=== PATIENT | male | born 1935 | race Caucasian/White ===

== ENCOUNTER 2016-09-17 17:46 | Inpatient (IN) | payer BC ==
--- NOTE | ~2016-09-17 | DS ---
Discharge Summary [facility] [address] [place]. [address] NAME: KHANG COPELAND : 34 STATUS : ADM IN [facility]#: [id number] AGE: 81 ADM/REG DATE : 09/17/16 MR#: [id number] REPORT SERV DATE: 09/23/16 DICTATED BY: DATE: REPORT STATUS : Draft TRANSCRIBED BY: MODL DATE: 09/22/16 ADMISSION DATE: 09/17/2016 DISCHARGE DATE: 09/22/2016 [facility] DISCHARGE DIAGNOSES: 1. Systemic inflammatory response syndrome due to bilateral interstitial pneumonia. 2. Asplenic. 3. Parkinson disease with dementia, and recently progressive weakness. 4. Acute kidney injury due to dehydration. 5. 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 6. Insulin-dependent diabetes mellitus type 2-with hypoglycemia at admission. Basal insulin decreased this admission. 7. Hypertension. 8. History of seizure disorder. 9. Hyperlipidemia. 10.Gastroesophageal reflux disease. 11.Benign prostatic hypertrophy. 12.Coronary artery disease, with remote history of myocardial infarction. 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 IMAGIN. Portable chest x-ray September 17 shows no acute process. 2. PA lateral chest x-ray September 19 shows interstitial pneumonia bilaterally. 3. Swallow study September 19 no aspiration or penetration. Pooling to the vallecula and piriform sinuses. Prolonged chewing. PERTINENT LABS: Creatinine at admission 1.2, 0.9 at discharge. Hemoglobin values ranging from 8.9 to 9.8, initial white blood cell count 19.6, 9.2 at discharge. Electrolytes normal. Initial blood gas pH 7.4, pCO2 30, PO2 75, with oxygen saturations 94% on room air. Urinalysis negative for infection, lactic acid level and procalcitonin negative. Strep and Legionella antigen are negative. Troponin negative. Iron 32, iron binding capacity 207. Blood cultures x2 negative. Guaiacs and serum protein electrophoresis pending at the time of discharge. Sputum culture pending with less than 25 white blood cells on smear. BRIEF HISTORY: For full details, please see the previously dictated history of present illness by Dr. Toribio. This is an 81-year-old, white male with history of recently progressive Parkinson's, managed by Dr. Hall, who presented to the Emergency Department with chief complaints of weakness and cough, poor p.o. intake. Labs were consistent with systemic inflammatory response syndrome felt probably due to pneumonia. He also demonstrated evidence of acute kidney injury at admission, and was admitted to the Hospitalist Service for management. HOSPITAL COURSE: The patient was started on IV fluids. There was no evidence of a clear infiltrate on chest x-ray, but he was treated for aspiration versus community-acquired Discharge Summary [address] [address] NAME: KHANG COPELAND : 34 STATUS : ADM IN PAT#: [id number] AGE: 81 ADM/REG DATE : 09/17/16 MR#: [id number] REPORT SERV DATE: 09/23/16 DICTATED BY: DATE: REPORT STATUS : Draft TRANSCRIBED BY: MODL DATE: 09/22/16 pneumonia. Repeat imaging following hydration was obtained and demonstrated bilateral interstitial pneumonitis versus pneumonia. He was initially started on cefepime, vanc and Flagyl. This was changed to Rocephin and azithromycin with ongoing stability in white blood cell count, and no need for supplemental oxygen. No evidence of abnormal pulmonary examination during the hospitalization. Despite treatment of the dehydration and pneumonia, the patient remained very weak. It is unclear whether this is due to the acute illness or whether it is related to his underlying Parkinson disease. He does have significant dementia as well as cogwheeling. He does not have any evidence of current aspiration by Speech Therapy and swallow evaluation, however, is recommended to adhere to a mechanical soft chopped meat with gravy, nectar thick liquid diet with aspiration precautions given the risk of possible aspiration. The patient's other medical conditions were stable this admission. He did demonstrate some hypoglycemia on his home doses of insulin necessitating a decrease in his basal insulin. He also demonstrated some anemia which is long standing with hemoglobin values between 8.5 and 9.5. Iron studies obtained this admission were consistent with a mixed iron deficiency and anemia of chronic disease. We attempted to obtain guaiacs and patient had 2 bowel movements while here, but results are not yet in the computer. We also obtain serum protein electrophoresis, and results are not yet in the computer. This will need to be followed up outpatient. DISPOSITION: The patient will be transferred to [facility] for ongoing physical rehabilitation. I have recommended to his that he follow up with both PCP and neurologist post discharge to see about any further adjustments in Parkinson's medications. Discharge disposition to [facility] for rehab with no specific activity restrictions. He should continue his current diet at discharge which again is mechanical soft with chopped meats and gravy, nectar thick liquids with aspiration precautions. His will contact Dr. Hall and their primary care provider within 1 to 2 weeks from rehab discharge, for followup appointments. DISCHARGE MEDICATIONS: 1. Aspirin 81 mg p.o. daily. 2. Azithromycin 500 mg p.o. daily through 09/25/2016. 3. Sinemet 25/100, 1.5 tabs every 8 hours. 4. Colace 100 mg p.o. twice a day. 5. Aricept 5 mg p.o. at q.h.s. 6. Iron sulfate 300 mg p.o. daily. 7. Lopid 600 mg p.o. twice a day. 8. Sliding scale NovoLog q.a.c. and q.h.s. 9. Losartan 50 mg p.o. daily. 10.Melatonin 9 mg p.o. at q.h.s. 11.Protonix 40 mg p.o. q.a.m. 12.Dilantin 500 mg p.o. every Thursday, Thursday, Thursday at bedtime and 400 mg p.o. every Thursday, Thursday, , and Thursday at bedtime. 13.MiraLAX one packet p.o. daily. Discharge Summary [address] [address] NAME: KHANG COPELAND : 34 STATUS : ADM IN [facility]#: [id number] AGE: 81 ADM/REG DATE : 09/17/16 MR#: [id number] REPORT SERV DATE: 09/23/16 DICTATED BY: DATE: REPORT STATUS : Draft TRANSCRIBED BY: ALMAS DATE: 09/22/16 14.Pravastatin 20 mg p.o. q.h.s. 15.Zoloft 100 mg p.o. daily. 16.Levemir 10 units subcu at q.h.s. 17.Tylenol 650 mg p.o. every four hours as needed for pain. 18.Antivert 12.5 mg p.o. every six hours as needed for dizziness. 19.Cefdinir 300 mg p.o. q.12 hours for four4 days through 09/25/2016 doses. Thirty five minutes was spent in completion of the discharge summary. DICTATED BY: Elias Guillaume/ALMAS Adi Westfall M.D. / [id number] CC: Elias Guillaume M.D. Sharon Farber, M.D. Muhammad Munir, M.D.
--- NOTE | ~2016-09-17 | HP ---
History And Physical [place] [id number] [facility] [place]. [address] NAME: KHANG COPELAND : 34 STATUS : ADM IN [facility]#: [id number] AGE: 80 ADM/REG DATE : 09/17/16 MR#: [id number] REPORT SERV DATE: 09/18/16 DICTATED BY: CARLEY PERDOMO DATE: 09/17/16 REPORT STATUS : Draft TRANSCRIBED BY: MODRadha DATE: 09/17/16 DATE OF ADMISSION: 09/17/2016 POINT OF ENTRY: [facility]. CHIEF COMPLAINT: Weakness. HISTORY OF PRESENT ILLNESS: Mr. Copeland is an 80-year-old gentleman with a history of Parkinson's disease, hypertension, insulin-dependent diabetes mellitus type 2 as well as a remote history of dysphagia, who is also status post splenectomy, who presents with a history of two days of generalized weakness. The patient states for the past two days he has had progressive worsening weakness, it is generalized. He denies any focal weakness. At baseline the patient utilizes a walker given his history of Parkinson disease. , who is at bedside, states that for the past two days while complaining of weakness he is still unable to ambulate using his walker up until prior to presentation to the emergency department where he was so weak, even with assistance of a walker he was struggling to walk and was at risk of falling backwards. They both deny any fevers, night sweats, chills, chest pain, palpitations, abdominal pain, shortness of breath, nausea, vomiting, diarrhea, constipation, dysuria, lower extremity edema, melena, or hematochezia. states he has always had some amount of nonproductive cough secondary to sinus disease; however, she feels over the past few days it has become a little more pronounced and wetter in nature. Initial evaluation in the emergency department for vital signs that were stable. Labs notable for a BUN and creatinine that are slightly [place] [id number]. Search for source of an infection revealed urinalysis that was negative. Lactic acid is normal and procalcitonin was negative. Chest x-ray concerning for possible right lower lobe infiltrate versus atelectasis. The patient was subsequently admitted to the Hospitalist Service for further evaluation and management. REVIEW OF SYSTEMS: Comprehensive review of systems otherwise negative unless listed in the history of present illness. PREVIOUS MEDICAL HISTORY: 1. Parkinson's disease. 2. Seizure disorder. 3. BPH. 4. Gastroesophageal reflux disease with history of Cha's esophagus status post ablation. 5. Depression. 6. Remote history of coronary artery disease with prior NE. 7. Insulin-dependent diabetes mellitus, type 2. 8. COPD, not on home oxygen. History And Physical [address] [address] NAME: KHANG COPELAND : 34 STATUS : ADM IN [facility]#: [id number] AGE: 80 ADM/REG DATE : 09/17/16 MR#: [id number] REPORT SERV DATE: 09/18/16 DICTATED BY: CARLEY PERDOMO DATE: 09/17/16 REPORT STATUS : Draft TRANSCRIBED BY: ALMAS DATE: 09/17/16 9. Hypertension. 10.Hyperlipidemia. 11.Status post splenectomy. SURGICAL HISTORY: Splenectomy. ALLERGIES: TO IODINE IV CONTRAST. HOME MEDICATIONS: 1. Aspirin 81 mg daily. 2. Sinemet 25-100 mg 1-1/2 tablets t.i.d. 3. Aricept 5 mg q.h.s. 4. Lopid 600 mg b.i.d. 5. Levemir 39 units daily. 6. Humalog sliding scale. 7. Losartan 50 mg daily. 8. Meclizine 12.5 mg q.6 hours p.r.n. 9. Melatonin 10 mg q.h.s. 10.Omeprazole 40 mg daily. 11.Phenytoin 500 mg Thursday, Thursday, Thursday q.h.s. 12.Phenytoin 400 mg Thursday, , Thursday, Thursday q.h.s. 13.Pravachol 20 mg q.h.s. 14.Sertraline 100 mg daily. SOCIAL HISTORY: Denies any tobacco, alcohol, or illicits. FAMILY MEDICAL HISTORY: Mother with hypertension and breast cancer. Father's history is unknown. He is an only child. LABS AND IMAGIN. White count is 19.6, hemoglobin is 9.8, hematocrit is 29.8, platelet count is 223, and INR 1.3. 2. Sodium is 143, potassium 4.0, chloride 111, carbon dioxide 23, BUN 26, creatinine 1.16, glucose is 70, calcium is 8.9, magnesium is 2.3, protein is 7.7, albumin is 3.2, bilirubin is 0.4, ALT is 9, AST 12, alkaline phosphatase is 167. 3. Troponin less than 0.02. 4. Lactic acid 0.8. Procalcitonin is negative. 5. Urinalysis: Spec gravity 1.015, no evidence of any infection. 6. ABG; pH is 7.40, pCO2 is 30, PO2 is 75, bicarb is 18, and saturating 94% on room air. 7. Chest x-ray per my review shows right lower lobe infiltrate versus possible atelectasis. 8. EKG per my review shows normal sinus rhythm. No evidence of any acute ischemia or infarction. PHYSICAL EXAMINATION: VITAL SIGNS: Temperature is 99.6 degrees Fahrenheit, pulse is 88, respirations 24, saturating 98% on room air, and blood pressure 160/67. History And Physical [address] [address] NAME: KHANG COPELAND : 34 STATUS : ADM IN [facility]#: [id number] AGE: 80 ADM/REG DATE : 09/17/16 MR#: [id number] REPORT SERV DATE: 09/18/16 DICTATED BY: CARLEY PERDOMO DATE: 09/17/16 REPORT STATUS : Draft TRANSCRIBED BY: ALMAS DATE: 09/17/16 GENERAL: The patient is awake and alert, in no acute distress. Resting comfortably. He is a well-developed, well-nourished, elderly male. is at bedside. HEENT: Atraumatic and normocephalic. Moist mucous membranes. Pupils equal, round, reactive to light and accommodation. Extraocular eye movements intact. No scleral icterus. NECK: No jugular venous distention or carotid bruits. CARDIAC: Regular rate and rhythm. No murmurs, rubs, or gallops. Normal S1, S2. LUNGS: Does have inspiratory rales and possible rhonchi in the right lower lung base, otherwise in no respiratory distress. ABDOMEN: Soft, nontender, and nondistended. Good bowel sounds. No rebound, guarding, or rigidity. EXTREMITIES: Warm and perfused. No cyanosis, clubbing, or edema. SKIN: Warm and dry. PSYCH: Affect appropriate. NEURO: Alert and oriented x3. Cranial nerves 2 through 12 grossly intact. Speech is normal. Gait not assessed. ASSESSMENT AND PLAN: Mr. Copeland is an 80-year-old gentleman who presents with a two-day history of weakness as well as worsening cough and found to have evidence of right lower lobe pneumonia. PROBLEM LIST: 1. Right lower lobe pneumonia. 2. Weakness. 3. Leukocytosis. 4. Dehydration. 5. Asplenia status. 6. Insulin-dependent diabetes mellitus type 2. PLAN: 1. Right lower lobe pneumonia. We will place the patient on initially broad-spectrum antibiotics of cefepime, vancomycin, and Flagyl. Given his asplenia as well as concern for possible aspiration and dysphagia risk. Follow up blood cultures. Try to obtain sputum culture as well as urinary antigens. We will attempt to narrow antibiotics as tolerated. 2. Dehydration. Provide IV fluid hydration. 3. Leukocytosis likely secondary to right lower lobe pneumonia. Urinalysis is clear. Follow up blood cultures. 4. Weakness likely secondary to right lower lobe pneumonia as well as dehydration. Provide IV fluid hydration. Treat his underlying pneumonia. Physical Therapy consultation. 5. Asplenia. Given the patient's asplenia and concern for underlying infection, we will initially treat with broad-spectrum antibiotics while cultures result as well as we observe him clinically. 6. Concern for aspiration versus dysphagia. reports that while the patient was at [facility] a few years ago there was concern for some aspiration dysphagia and was placed on thickened liquids which he is no longer taking. We will place the patient on aspiration precautions as well as Speech Therapy evaluation and will cover with IV History And Physical [address] [address] NAME: KHANG COPELAND : 34 STATUS : ADM IN [facility]#: [id number] AGE: 80 ADM/REG DATE : 09/17/16 MR#: [id number] REPORT SERV DATE: 09/18/16 DICTATED BY: CARLEY PERDOMO DATE: 09/17/16 REPORT STATUS : Draft TRANSCRIBED BY: MODRadha DATE: 09/17/16 Flagyl. 7. Insulin-dependent diabetes mellitus type 2. Place him on level IV insulin sliding scale. We are going to have the patient's long-acting insulin as his blood sugar here was 70. 8. DVT prophylaxis. Lovenox subcu. CODE STATUS: The patient wished to be DNR/DNI, this was confirmed. DEJA/ALMAS Carley Perdomo MD / [id number] CC: MD Golden Beal M.D.
--- NOTE | ~2016-09-17 | DS ---
Discharge Summary [place] [id number] [facility] [place]. [address] NAME: KHANG COPELAND : 34 STATUS : DIS IN PAT#: [id number] AGE: 81 ADM/REG DATE : 09/17/16 MR#: [id number] REPORT SERV DATE: 09/25/16 DICTATED BY: FELIZ MESSER DATE: 09/24/16 REPORT STATUS : Draft TRANSCRIBED BY: MODL DATE: 09/24/16 ADMISSION DATE: 09/17/2016 DISCHARGE DATE: 09/23/2016 Date of transfer to SNF/rehab is 09/23/2016. CONDITION ON TRANSFER: Stable. DISPOSITION: Transfer to SNF/rehab. For detailed discharge summary, please refer to discharge summary dictated by Dr. Adi Westfall on 09/22/2016. His discharge was held until 09/23/2016 only because of insurance approval and unavailability of bed. Otherwise, he was stable. His discharge diagnosis remain exactly the same as dictated in the discharge summary on 09/22/2016. The only new labs that I had on this patient from 09/23/2016 are as follows: His glucose levels came back fairly normal fluctuating between 74 and 170 on 09/23/2016. Other than that, I have no other labs that have been updated. 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 The patient does not have any myeloma at this time. Blood cultures have come back with no growth in four days. Medications that he will be discharged on include the followin. Aspirin 81 mg once a day. 2. Losartan 50 mg once a day. 3. Zoloft 100 mg once a day. 4. Lopid 600 mg p.o. b.i.d. 5. Pravachol 20 mg once a day. 6. Prilosec 40 mg once a day. 7. Sinemet 25/500 one and half tablets p.o. t.i.d. 8. Aricept 5 mg p.o. at bedtime. 9. Melatonin 10 mg once a day. 10.Dilantin 500 mg p.o. on Thursday, Thursday, Thursday scheduled and 400 mg on Thursday, , Thursday, Thursday scheduled. 11.Levemir insulin 39 units subcutaneously every morning. 12.Humalog insulin per sliding scale. 13.Antivert 12.5 mg p.o. q.6 hours as needed p.r.n. for vertigo. Hence, the patient is transferred to SNF/inpatient rehab in stable condition. At this time, the patient is being transferred to [facility] for further rehabilitation on 09/23/2016. I have spent about 30 minutes in coordinating discharge care of this patient including face- to-face encounter and summarizing this discharge. Discharge Summary [address] [address] NAME: KHANG COPELAND : 34 STATUS : DIS IN PAT#: [id number] AGE: 81 ADM/REG DATE : 09/17/16 MR#: [id number] REPORT SERV DATE: 09/25/16 DICTATED BY: FELIZ MESSER DATE: 09/24/16 REPORT STATUS : Draft TRANSCRIBED BY: ALMAS DATE: 09/24/16 DICTATED BY: Feliz Messer M.D. RRA/ALMAS Feliz Messer M.D. / [id number] CC: Elias Guillaume M.D.
[~2016-09-17 17:46] MED LIST: ASA5GR PO; ASAB PO; CO Q-10100 MG PO; COZ50 PO; D100 PO; HUMALOG SC; KLONO5 PO; LANTUS SC; LOPID6 PO; MEVACOR40 MG PO; MICARDIS40 PO; MUCINEX DM1 TAB PO; NORV5 PO; OTC EYE DROPS OPH; PRILO PO; PROPYLTHIOUR50 MG OR; SIN25 PO; SUPER B COMP PO; ZOL100 PO
[2016-09-17 18:34] LABS: BE (BASE EXCESS) -5.5 MEQ/L (0 +/- 2.5); CARBOXYHEMOGLOBIN 0.9 % (0-3); HCO3 (ACTUAL BICARBONATE) 18.4 MEQ/L (23-27); INSTRUMENT SERIAL # 8087; PCO2 (CO2 TENSION) 30 MMHG (35-45); PO2 (O2 TENSION) 75 MMHG (79-93)
[2016-09-17 18:35] LABS: ALLENS TEST Pos; HEMOBLOGIN CONTENT 10.2 G/DL (14-18); METHEMOGLOBIN 0.3 % (0-3); O2 CONTENT 13.5 VOL% (18-24); SAMPLE Arterial
[2016-09-17 18:41] LABS: BASOPHILS 0.1 %; BASOPHILS ABSOLUTE 0.02 10/3/uL (0.0-0.16); EOSINOPHILS 0.1 %; EOSINOPHILS ABSOLUTE 0.02 10/3/uL (0.0-0.53); ER CBC TAT 0 Hrs 08 Mins; HEMATOCRIT 29.8 % (40.0-51.0); HEMOGLOBIN 9.8 g/dL (13.6-17.8); IMMATURE GRANULOCYTES 0.4 %; IMMATURE GRANULOCYTES ABSOLUTE 0.07 10/3/uL (0.0-0.11); LYMPHOCYTES ABSOLUTE 1.95 10/3/uL (0.67-4.30); MANUAL DIFF NO %; MEAN CORPUS HGB CONC 32.9 g/dL (32.0-36.0); MEAN CORPUSCULAR HEMOGLOB 30.8 pg (26.0-34.0); MEAN CORPUSCULAR VOLUME 93.7 fL (80-100); MEAN PLATELET VOLUME 11.7 fL (9.2-13.0); MONOCYTES 10.4 %; MONOCYTES ABSOLUTE 2.04 10/3/uL (0.21-1.20); NEUTROPHILS ABSOLUTE 15.48 10/3/uL (2.02-8.40); PLATELET COUNT 423 10/3/uL (150-400); RBC DISTRIBUTION WIDTH 14.8 % (12.0-16.0); RED CELL COUNT 3.18 10/6/uL (4.7-6.1); WHITE BLOOD CELLS 19.6 10/3/uL (4.5-10.5)
[2016-09-17 18:49] LABS: INTERNATIONAL NORMAL RATI 1.3 UNITS (-); PARTIAL THROMBO TIME 38.8 SEC (22.5-37.2); PROTIME (NOT ORD) 16.3 SEC (12.0-14.5)
[2016-09-17 19:01] LABS: A/G RATIO 0.7 (0.7-1.9); ALBUMIN 3.2 G/DL (3.5-5.0); ALKALINE PHOSPHATASE 167 U/L (45-117); BUN (BLOOD UREA NITROGEN) 26 MG/DL (6-23); CALCIUM, SERUM 8.9 MG/DL (8.5-10.4); CHEST PAIN PROFILE TAT 0 Hrs 28 Mins; CHLORIDE, SERUM 111 MMOL/L (96-112); CO2 (CARBON DIOXIDE) 22 MMOL/L (24-34); CREATININE 1.16 MG/DL (0.70-1.30); GFR AFRICAN AMERICAN 68 ML/MIN (>=60); GFR NON AFRICAN AMERICAN 59 ML/MIN (>=60); GLOBULIN 4.5 G/DL (2.5-4.1); GLUCOSE, SERUM 70 MG/DL (60-99); SGOT(AST) 12 U/L (5-40); SGPT(ALT) 9 U/L (5-65); SODIUM, SERUM 143 MMOL/L (135-148); TOTAL BILIRUBIN 0.4 MG/DL (0-1.2); TOTAL PROTEIN 7.7 G/DL (6.0-8.5); TROPONIN I <0.02 NG/ML (<0.05)
[2016-09-17 19:30] LABS: WBC (NOT ORDERED) (RFLEX) 0 (0-5)
[2016-09-17 19:40] LABS: ASCORBIC ACID (UR NOT ORDER) NEG (NEG); BILIRUBIN, URINE NEGATIVE (NEG); ER URINALYSIS TAT 0 Hrs 12 Mins; KETONE, URINE NEGATIVE (NEG); LEUKOCYTE ESTERASE(NOT OR NEG (NEG); NITRITE (URINE) NEG (NEG)
[2016-09-17 21:19] LABS: LACTATE 0.8 MMOL/L (0.3-2.4)
[2016-09-17 22:13] LABS: PROCALCITONIN <0.05 ng/mL (<0.5)
[2016-09-17] MEDS ORDERED: ASAB PO (23:13)
[2016-09-17] MEDS ORDERED: PRAVAC PO (23:13)
[2016-09-17] MEDS ORDERED: LOPID6 PO (23:13)
[2016-09-17] MEDS ORDERED: ZOL100 PO (23:13)
[2016-09-17] MEDS ORDERED: COZ50 PO (23:13)
[2016-09-17] MEDS ORDERED: SIN25 PO (23:14)
[2016-09-17] MEDS ORDERED: ARICEPT5 PO (23:14)
[2016-09-17] MEDS ORDERED: PRILOSEC40 MG PO (23:14)
[2016-09-17] MEDS ORDERED: MELATONIN10 M2 PO (23:15)
[2016-09-17] MEDS ORDERED: D100 PO ×2 (23:16)
[2016-09-17] MEDS ORDERED: LEVEMIR SC (23:17)
[2016-09-17] MEDS ORDERED: HUMALOG SC (23:17)
[2016-09-17] MEDS ORDERED: MCZ125 PO (23:18)
[2016-09-18 06:13] LABS: BASOPHILS 0.1 %; BASOPHILS ABSOLUTE 0.02 10/3/uL (0.0-0.16); EOSINOPHILS 0.1 %; EOSINOPHILS ABSOLUTE 0.01 10/3/uL (0.0-0.53); HEMATOCRIT 27.4 % (40.0-51.0); HEMOGLOBIN 8.9 g/dL (13.6-17.8); IMMATURE GRANULOCYTES 0.3 %; IMMATURE GRANULOCYTES ABSOLUTE 0.06 10/3/uL (0.0-0.11); LYMPHOCYTES 10.4 %; LYMPHOCYTES ABSOLUTE 1.92 10/3/uL (0.67-4.30); MEAN CORPUS HGB CONC 32.5 g/dL (32.0-36.0); MEAN CORPUSCULAR HEMOGLOB 30.6 pg (26.0-34.0); MEAN CORPUSCULAR VOLUME 94.2 fL (80-100); MEAN PLATELET VOLUME 11.4 fL (9.2-13.0); MONOCYTES 10.9 %; NEUTROPHILS 78.2 %; NEUTROPHILS ABSOLUTE 14.37 10/3/uL (2.02-8.40); PLATELET COUNT 361 10/3/uL (150-400); RBC DISTRIBUTION WIDTH 14.7 % (12.0-16.0); RED CELL COUNT 2.91 10/6/uL (4.7-6.1); WHITE BLOOD CELLS 18.4 10/3/uL (4.5-10.5)
[2016-09-18 06:15] LABS: MANUAL DIFF NO %
[2016-09-18 06:22] LABS: BUN (BLOOD UREA NITROGEN) 24 MG/DL (6-23); CALCIUM, SERUM 8.6 MG/DL (8.5-10.4); CHLORIDE, SERUM 116 MMOL/L (96-112); CO2 (CARBON DIOXIDE) 19 MMOL/L (24-34); CREATININE 0.91 MG/DL (0.70-1.30); GFR AFRICAN AMERICAN 91 ML/MIN (>=60); GFR NON AFRICAN AMERICAN 79 ML/MIN (>=60); GLUCOSE, SERUM 73 MG/DL (60-99); POTASSIUM, SERUM 3.7 MMOL/L (3.5-5.3); SODIUM, SERUM 143 MMOL/L (135-148)
[2016-09-19 05:59] LABS: BASOPHILS 0.2 %; BASOPHILS ABSOLUTE 0.02 10/3/uL (0.0-0.16); BUN (BLOOD UREA NITROGEN) 21 MG/DL (6-23); CALCIUM, SERUM 8.3 MG/DL (8.5-10.4); CHLORIDE, SERUM 116 MMOL/L (96-112); CO2 (CARBON DIOXIDE) 18 MMOL/L (24-34); CREATININE 0.96 MG/DL (0.70-1.30); EOSINOPHILS 1.5 %; EOSINOPHILS ABSOLUTE 0.16 10/3/uL (0.0-0.53); GFR AFRICAN AMERICAN 86 ML/MIN (>=60); GFR NON AFRICAN AMERICAN 74 ML/MIN (>=60); HEMATOCRIT 25.8 % (40.0-51.0); HEMOGLOBIN 8.6 g/dL (13.6-17.8); IMMATURE GRANULOCYTES 0.2 %; IMMATURE GRANULOCYTES ABSOLUTE 0.02 10/3/uL (0.0-0.11); IRON BINDING CAPACITY 207 MCG/DL (250-450); IRON, SERUM 32 MCG/DL (35-150); LYMPHOCYTES 16.1 %; LYMPHOCYTES ABSOLUTE 1.68 10/3/uL (0.67-4.30); MEAN CORPUS HGB CONC 33.3 g/dL (32.0-36.0); MEAN CORPUSCULAR HEMOGLOB 31.5 pg (26.0-34.0); MEAN CORPUSCULAR VOLUME 94.5 fL (80-100); MEAN PLATELET VOLUME 11.5 fL (9.2-13.0); MONOCYTES ABSOLUTE 1.56 10/3/uL (0.21-1.20); NEUTROPHILS ABSOLUTE 6.98 10/3/uL (2.02-8.40); PLATELET COUNT 358 10/3/uL (150-400); POTASSIUM, SERUM 3.6 MMOL/L (3.5-5.3); RBC DISTRIBUTION WIDTH 14.5 % (12.0-16.0); RED CELL COUNT 2.73 10/6/uL (4.7-6.1); SODIUM, SERUM 144 MMOL/L (135-148)
[2016-09-19 06:00] LABS: GLUCOSE, SERUM 98 MG/DL (60-99); MANUAL DIFF NO %; WHITE BLOOD CELLS 10.4 10/3/uL (4.5-10.5)
[2016-09-20 07:37] LABS: BASOPHILS 0.2 %; BASOPHILS ABSOLUTE 0.02 10/3/uL (0.0-0.16); EOSINOPHILS 2.2 %; HEMATOCRIT 25.7 % (40.0-51.0); HEMOGLOBIN 8.7 g/dL (13.6-17.8); IMMATURE GRANULOCYTES 0.3 %; IMMATURE GRANULOCYTES ABSOLUTE 0.03 10/3/uL (0.0-0.11); LYMPHOCYTES ABSOLUTE 1.65 10/3/uL (0.67-4.30); MEAN CORPUS HGB CONC 33.9 g/dL (32.0-36.0); MEAN CORPUSCULAR HEMOGLOB 31.3 pg (26.0-34.0); MEAN CORPUSCULAR VOLUME 92.4 fL (80-100); MEAN PLATELET VOLUME 11.2 fL (9.2-13.0); MONOCYTES ABSOLUTE 1.38 10/3/uL (0.21-1.20); NEUTROPHILS 64.3 %; NEUTROPHILS ABSOLUTE 5.91 10/3/uL (2.02-8.40); PLATELET COUNT 377 10/3/uL (150-400); RBC DISTRIBUTION WIDTH 14.6 % (12.0-16.0); RED CELL COUNT 2.78 10/6/uL (4.7-6.1); WHITE BLOOD CELLS 9.2 10/3/uL (4.5-10.5)
[2016-09-20 07:38] LABS: MANUAL DIFF NO %
[2016-09-20 07:55] LABS: CALCIUM, SERUM 8.3 MG/DL (8.5-10.4); CHLORIDE, SERUM 117 MMOL/L (96-112); CO2 (CARBON DIOXIDE) 18 MMOL/L (24-34); CREATININE 0.82 MG/DL (0.70-1.30); GFR AFRICAN AMERICAN 95 ML/MIN (>=60); GFR NON AFRICAN AMERICAN 82 ML/MIN (>=60); POTASSIUM, SERUM 3.7 MMOL/L (3.5-5.3); SODIUM, SERUM 144 MMOL/L (135-148)
[2016-09-20 07:56] LABS: BUN (BLOOD UREA NITROGEN) 15 MG/DL (6-23); GLUCOSE, SERUM 120 MG/DL (60-99)
[2016-09-22 06:36] LABS: BASOPHILS 0.2 %; BASOPHILS ABSOLUTE 0.02 10/3/uL (0.0-0.16); EOSINOPHILS ABSOLUTE 0.39 10/3/uL (0.0-0.53); HEMATOCRIT 26.6 % (40.0-51.0); HEMOGLOBIN 8.9 g/dL (13.6-17.8); IMMATURE GRANULOCYTES 0.4 %; IMMATURE GRANULOCYTES ABSOLUTE 0.04 10/3/uL (0.0-0.11); LYMPHOCYTES 21.1 %; LYMPHOCYTES ABSOLUTE 2.08 10/3/uL (0.67-4.30); MANUAL DIFF NO %; MEAN CORPUS HGB CONC 33.5 g/dL (32.0-36.0); MEAN CORPUSCULAR HEMOGLOB 31.2 pg (26.0-34.0); MEAN CORPUSCULAR VOLUME 93.3 fL (80-100); MEAN PLATELET VOLUME 11.7 fL (9.2-13.0); MONOCYTES 16.6 %; MONOCYTES ABSOLUTE 1.63 10/3/uL (0.21-1.20); NEUTROPHILS 57.7 %; NEUTROPHILS ABSOLUTE 5.68 10/3/uL (2.02-8.40); PLATELET COUNT 405 10/3/uL (150-400); RBC DISTRIBUTION WIDTH 14.6 % (12.0-16.0); RED CELL COUNT 2.85 10/6/uL (4.7-6.1); WHITE BLOOD CELLS 9.8 10/3/uL (4.5-10.5)
[2016-09-22 06:48] LABS: BUN (BLOOD UREA NITROGEN) 13 MG/DL (6-23); CALCIUM, SERUM 8.7 MG/DL (8.5-10.4); CHLORIDE, SERUM 117 MMOL/L (96-112); CO2 (CARBON DIOXIDE) 21 MMOL/L (24-34); CREATININE 0.86 MG/DL (0.70-1.30); GFR AFRICAN AMERICAN 94 ML/MIN (>=60); GFR NON AFRICAN AMERICAN 81 ML/MIN (>=60); POTASSIUM, SERUM 3.7 MMOL/L (3.5-5.3); SODIUM, SERUM 138 MMOL/L (135-148)
[2016-09-22 06:49] LABS: GLUCOSE, SERUM 94 MG/DL (60-99)
[2016-09-22 13:47] LABS: A/G 1.06 RATIO (0.9-2.10); ALB RELATIVE % 51.4 % (60.0-89.0); ALBUMIN (ELECTRO) 3.08 GM/DL (3.2-5.5); ALPHA 1 (ELECTRO) 0.28 GM/DL (0.1-0.4); ALPHA 1 RELAT % (NOT ORD) 4.7 % (1.0-4.0); ALPHA 2 (ELECTRO) 1.01 GM/DL (0.5-1.10); ALPHA 2 RELAT % 16.9 % (4.5-26.0); BETA GLOBULIN (SPE) 0.71 GM/DL (0.60-1.30); BETA RELATIVE % 11.9 % (9.0-22.0); GAMMA GLOBULIN (SPE) 0.91 G/DL (0.70-1.60); GAMMA RELAT % 15.1 % (6.0-22.0)
[2016-11-21] MEDS ORDERED: D100 PO ×2 (22:51→22:52)
[2016-11-21] MEDS ORDERED: PRAVAC PO (22:52)
[2016-11-21] MEDS ORDERED: ARICEPT10 PO (22:53)
[2016-11-21] MEDS ORDERED: CONSTULOSE PO (22:54)
[2016-11-21] MEDS ORDERED: PRILOSEC40 MG PO (22:54)
[2016-11-21] MEDS ORDERED: COZ25 PO (22:54)
[2016-11-21] MEDS ORDERED: LOPID6 PO (22:55)
[2016-11-21] MEDS ORDERED: FERROUS SULF325 M1 PO (22:56)
[2016-11-21] MEDS ORDERED: FOLIC PO (22:56)
[2016-11-21] MEDS ORDERED: SIN25 PO (22:56)
[2016-11-21] MEDS ORDERED: LEVEMIR SC (22:57)
[2016-11-21] MEDS ORDERED: MCZ125 PO (23:00)
[2016-11-21] MEDS ORDERED: ASAB PO (23:02)
[2016-11-21] MEDS ORDERED: MELATONIN10 M2 PO (23:02)
== END 2016-09-23 19:14 | DRG 196 ==
LOC: ER 17:46 → 7NO 23:59
PROVIDERS: Emergency Medicine; Hospitalist; Internal Medicine
DX: J84.89 Other specified interstitial pulmonary diseases (principal); J18.9 Pneumonia, unspecified organism; N17.9 Acute kidney failure, unspecified; E11.649 Type 2 diabetes mellitus with hypoglycemia without coma; G20 Parkinson's disease; F02.80 Dementia in other diseases classified elsewhere, unspecified severity, without behavioral disturbance, psychotic disturbance, mood disturbance, and anxiety; E86.0 Dehydration; R13.12 Dysphagia, oropharyngeal phase; I25.2 Old myocardial infarction; K21.9 Gastro-esophageal reflux disease without esophagitis; D50.9 Iron deficiency anemia, unspecified; D63.8 Anemia in other chronic diseases classified elsewhere; E78.5 Hyperlipidemia, unspecified; I25.10 Atherosclerotic heart disease of native coronary artery without angina pectoris; G40.909 Epilepsy, unspecified, not intractable, without status epilepticus; J44.9 Chronic obstructive pulmonary disease, unspecified; N40.0 Benign prostatic hyperplasia without lower urinary tract symptoms; Z90.81 Acquired absence of spleen; Z66 Do not resuscitate; Z79.82 Long term (current) use of aspirin; Z79.4 Long term (current) use of insulin
CPT/HCPCS: 36600; 71010; 71020; 74230; 80048; 80053; 81001; 82805; 82962; 83540; 83550; 83605; 83735; 84132; 84145; 84155; 84165; 84484; 85025; 85610; 85730; 87040; 87070; 87205; 87449; 92610-GN; 92611-GN; 93005; 94640; 97110-GP; 97116-GP; 97162-GP; 97166-GO; 97530-GP; 99285; A9270-GY; G0378; G8978-CK-GP; G8979-CJ-GP; J0456; J0692; J3370